=== PATIENT | male | born 1970 | race American Indian/Alaskan Native ===

== ENCOUNTER 2019-09-11 04:43 | Emergency (ER) | payer SELFPAY ==
[2019-09-11] MEDS ORDERED: levETIRAcetam 1000 MG/NS 0.75% 1,000 MG/100 ML BAG IV ONE (05:18)
[2019-09-11 05:59] LABS: Basophils # (Auto) 0.1 K/mm3 (0.0-0.1); Basophils % (Auto) 1.1 % (0.0-1.8); Eosinophils % (Auto) 0.8 % (0.0-4.3); Hematocrit 42.1 % (35.5-45.6); Hemoglobin 14.3 gm/dl (11.8-15.2); Lymphocytes # (Auto) 1.5 K/mm3 (1.2-5.4); Lymphocytes % (Auto) 25.4 % (13.4-35.0); Mean Corpuscular HGB Conc 34 % (32-34); Mean Corpuscular Volume 97 fl (84-94); Monocytes # (Auto) 0.6 K/mm3 (0.0-0.8); Monocytes % (Auto) 9.5 % (0.0-7.3); Platelet Count 174 K/mm3 (140-440); Red Blood Count 4.35 M/mm3 (3.65-5.03); Red Cell Distribution Width 16.5 % (13.2-15.2)
[2019-09-11 06:17] LABS: BUN/Creatinine Ratio 9; Blood Urea Nitrogen 8 mg/dL (9-20); Calcium 8.2 mg/dL (8.4-10.2); Hemolysis Index 4
[2019-09-11 06:53] LABS: Amphetamine Screen,Urine PRESUMPTIVE NEGATIVE; Benzodiazepines Screen,Urine PRESUMPTIVE NEGATIVE; Cannabinoid Screen,Urine PRESUMPTIVE NEGATIVE; Cocaine Screen,Urine PRESUMPTIVE NEGATIVE; Methadone Screen,Urine PRESUMPTIVE NEGATIVE; Opiate Screen,Urine PRESUMPTIVE NEGATIVE
--- NOTE | 2019-09-11 06:57 | Emergency Department Report ---
ED General Adult HPI - General Chief complaint: Seizure Stated complaint: POSS SEIZURE Time Seen by Provider: 09/11/19 06:16 Source: patient, EMS Mode of arrival: Stretcher Limitations: No Limitations - History of Present Illness Initial comments: This is a 49-year-old male who states that he has no complaints. He denies injury. Apparently he was given a gram of Keppra for a seizure. He was at the [facility]. He states this is his "14th detox". He states this is "my last". He denies depression or suicidal ideation. He states that he just wants to get help with detox. He is lucid and not exhibiting any signs of withdrawal. -: unknown Associated Symptoms: denies other symptoms - Related Data Previous Rx's Medication Instructions Recorded Last Taken Type levETIRAcetam [Keppra] 500 mg PO BID #60 udc 09/11/19 Unknown Rx Allergies Allergy/AdvReac Type Severity Reaction Status Date / Time No Known Allergies Allergy Unverified 09/11/19 05:34 ED Review of Systems ROS: Stated complaint: POSS SEIZURE Other details as noted in HPI Constitutional: denies: chills, fever Eyes: denies: eye pain, vision change ENT: denies: ear pain, throat pain Respiratory: denies: cough, shortness of breath Cardiovascular: denies: chest pain, palpitations Endocrine: no symptoms reported Gastrointestinal: denies: abdominal pain, vomiting Genitourinary: denies: urgency, dysuria Musculoskeletal: denies: back pain, joint swelling Skin: denies: rash, lesions Neurological: denies: headache, weakness Psychiatric: as per HPI. denies: auditory hallucinations, suicidal thoughts Hematological/Lymphatic: denies: easy bleeding, easy bruising ED Past Medical Hx - Past Medical History Previous Medical History?: Yes Hx Hypertension: Yes Hx Seizures: Yes - Surgical History Past Surgical History?: No - Social History Smoking Status: Current Every Day Smoker Substance Use Type: Alcohol - Medications Home Medications: Home Medications Medication Instructions Recorded Confirmed Last Taken Type levETIRAcetam [Keppra] 500 mg PO BID #60 udc 09/11/19 Unknown Rx ED Physical Exam - General Limitations: No Limitations General appearance: alert, in no apparent distress - Head Head exam: Present: atraumatic, normocephalic - Eye Eye exam: Present: normal appearance. Absent: scleral icterus - ENT ENT exam: Present: mucous membranes moist - Neck Neck exam: Present: normal inspection. Absent: tenderness, meningismus - Respiratory Respiratory exam: Present: normal lung sounds bilaterally. Absent: respiratory distress - Cardiovascular Cardiovascular Exam: Present: regular rate, normal rhythm. Absent: systolic murmur, diastolic murmur, rubs, gallop - GI/Abdominal GI/Abdominal exam: Present: soft, normal bowel sounds. Absent: distended, tenderness, guarding, rebound - Rectal Rectal exam: Present: deferred - Extremities Exam Extremities exam: Present: normal inspection. Absent: tenderness - Back Exam Back exam: Present: normal inspection. Absent: CVA tenderness (R), CVA tenderness (L), muscle spasm, paraspinal tenderness, vertebral tenderness - Neurological Exam Neurological exam: Present: alert, oriented X3, CN II-XII intact. Absent: motor sensory deficit - Psychiatric Psychiatric exam: Present: normal mood, flat affect - Skin Skin exam: Present: warm, dry, intact, normal color. Absent: rash ED Course Vital Signs 09/11/19 09/11/19 09/11/19 05:00 05:45 06:00 Temperature 97.7 F Pulse Rate 79 97 H 76 Respiratory 19 12 21 Rate Blood Pressure 128/81 112/71 114/69 Blood Pressure 128/81 [Left] O2 Sat by Pulse 92 98 94 Oximetry 09/11/19 06:15 Temperature Pulse Rate 75 Respiratory 35 H Rate Blood Pressure 106/62 Blood Pressure [Left] O2 Sat by Pulse 94 Oximetry - Reevaluation(s) Reevaluation #1: 49-year-old male with history of prior seizure. It is unclear to me whether he actually had a seizure or not. He is not exhibiting signs of withdrawal. He is medically clear for return to the detox unit. He does not report taking medicines for seizures. I will place him on Keppra. 09/11/19 06:56 ED Medical Decision Making - Lab Data Result diagrams: 09/11/19 05:30 09/11/19 05:30 Laboratory Results - last 24 hr 09/11/19 09/11/19 09/11/19 05:30 05:30 06:14 WBC 5.9 RBC 4.35 Hgb 14.3 Hct 42.1 MCV 97 H MCH 33 H MCHC 34 RDW 16.5 H Plt Count 174 Lymph % (Auto) 25.4 Summers % (Auto) 9.5 H Eos % (Auto) 0.8 Baso % (Auto) 1.1 Lymph # 1.5 Summers # 0.6 Eos # 0.0 Baso # 0.1 Seg Neutrophils % 63.2 Seg Neutrophils # 3.7 Sodium 142 Potassium 3.6 Chloride 101.2 Carbon Dioxide 23 Anion Gap 21 BUN 8 L Creatinine 0.9 Estimated GFR > 60 BUN/Creatinine Ratio 9 Glucose 98 Calcium 8.2 L Magnesium 2.10 Urine Opiates Screen Presumptive negative Urine Methadone Screen Presumptive negative Ur Barbiturates Screen Presumptive negative Ur Phencyclidine Scrn Presumptive negative Ur Amphetamines Screen Presumptive negative U Benzodiazepines Scrn Presumptive negative Urine Cocaine Screen Presumptive negative U Marijuana (THC) Screen Presumptive negative Critical care attestation.: If time is entered above; I have spent that time in minutes in the direct care of this critically ill patient, excluding procedure time. ED Disposition Clinical Impression: Seizure, Medical clearance for psychiatric admission Disposition: TO HOME OR SELFCARE Is pt being admited?: No Does the pt Need Aspirin: No Condition: Stable Instructions: Non-epileptic Seizures (ED) Additional Instructions: You may return to detox to complete your program. Rx Keppra for seizures. Prescriptions: levETIRAcetam [Keppra] 500 mg PO BID #60 [facility] – [place] Referrals: PRIMARY CARE [Primary Care Provider] - 3-5 Days [facility] [Provider Group] - 3-5 Days Time of Disposition: 07:01
[2019-09-11] MEDS ORDERED: LORazepam 1 MG TAB PO ONE (08:47)
[2019-09-11] MEDS ORDERED: LORazepam 1 MG TAB ONE (08:49)
[2019-09-11 09:08] VITALS: BP 113/68
== END 2019-09-11 09:08 | disposition home or self-care (01) ==
LOC: ED 04:43
DX: G40.909 Epilepsy, unspecified, not intractable, without status epilepticus (principal); I10 Essential (primary) hypertension; F17.200 Nicotine dependence, unspecified, uncomplicated; Z79.899 Other long term (current) drug therapy; Z04.6 Encounter for general psychiatric examination, requested by authority
CPT/HCPCS: 36415; 80048; 80307; 83735; 85025; 96365; 99284; J1953